=== PATIENT | female | born 1995 | race Caucasian/White ===

== ENCOUNTER → 2019-08-15 09:42 | Outpatient (BNVA) | payer MEDICAID, SELFPAY | PROVIDERS: Family Provider Family Medicine; Visit Provider Nurse Practitioner Psychiatric/Mental Health | DX: F84.0 Autistic disorder (principal); F72 Severe intellectual disabilities | CPT/HCPCS: 99213 ==

== ENCOUNTER 2019-12-02 12:10 | Emergency (ER) | payer MEDICAID, SELFPAY | END 2019-12-02 12:29 | disposition left against medical advice (07) | LOC: ER 02-12 09:40 | PROVIDERS: Emergency Provider Family Medicine; PCP Family Medicine | DX: N30.00 Acute cystitis without hematuria (principal); F84.0 Autistic disorder | CPT/HCPCS: 99281 ==

== ENCOUNTER 2019-12-02 12:30 | Emergency (ER) | payer MEDICAID, SELFPAY ==
[2019-12-02 12:40] VITALS: BP 133/81; PULSE 140; RESP 20; TEMP 36.4; O2SAT 97; BMI 31.5
[2019-12-02 13:17] VITALS: BP 122/73; PULSE 152; RESP 24
--- NOTE | 2019-12-02 13:29 | W.ED.DIZZY ---
HPI - Dizziness General: Chief Complaint: Dizziness Stated Complaint: dizzy, balance off Time Seen by Provider: 12/02/19 13:02 History of Present Illness: HPI Narrative: Patient is a 24-year-old female patient with severe autism and is nonverbal was brought in by her father because he thinks she may be dizzy. For the last 3 days she has refused to walk without holding onto something. Her father denies any fever, and vomiting, or any change in her behaviors. He took her to her primary care provider's office today and they did some blood work and called him with the results to tell him to bring her to the ED. He does not know what the results of the blood work. When I looked at her labs she was leukopenic, severely anemic, with a hemoglobin of 2.9, and thrombocytopenic. Onset (ago): day(s) (3) Timing: gradual onset Review of Systems General: Reports: Other (severe intellectual disability and non verbal) [facility] ED PFSH: Medical History Autism spectrum disorder with accompanying language impairment and intellectual disability, requiring substantial support Severe intellectual disability Social History Smoking and tobacco status: never smoked Female Reproductive History: Date of last menstrual period: 10/02/19 Physical Exam Const: COMMON NORMALS: no acute distress, average body habitus, patient oriented x3, no limitations, healthy appearing, alert and well nourished GENERAL APPEARANCE: anxious HENMT: COMMON NORMALS: normocephalic, atraumatic and moist oral mucous membranes HEAD & SCALP: normocephalic and atraumatic Eye: COMMON NORMALS: Equal, round and reactive pupils present, EOMs intact bilaterally, conjunctivae normal and no scleral icterus CONJUNCTIVA: Yes conjunctivae normal PUPIL: Yes Equal, round and reactive pupils present Neck/C-Spine: COMMON NORMALS: no meningeal signs and no JVD Resp: COMMON NORMALS: normal respiratory effort, No retractions, No use of accessory muscles, clear to auscultation bilaterally and percussion normal AUSCULTATION: clear to auscultation bilaterally PERCUSSION: percussion normal Cardio: COMMON NORMALS: no JVD, regular rhythm, S1 normal heart sound present, S2 normal heart sound present, No gallops present (Cardio), No clicks present (Cardio), No murmurs present (Cardio), No rub (Cardio) and Peripheral pulses 2+ throughout RATE: tachycardic RHYTHM: regular rhythm HEART SOUNDS: S1 normal heart sound present and S2 normal heart sound present PERIPHERAL PULSES: Peripheral pulses 2+ throughout GI: COMMON NORMALS: Normal to inspection, nondistended, normoactive bowel sounds present, Soft to palpation, non-tender, No hepatosplenomegaly present, no masses and no bruits PALPATION: Yes Soft to palpation and Yes No hepatosplenomegaly present : COMMON NORMALS: Yes no CVA tenderness BLADDER/KIDNEY EXAM: Yes no CVA tenderness Back/Pelvis: COMMON NORMALS: no CVA tenderness Extremity: COMMON NORMALS: normal to inspection, full ROM, capillary refill normal, no calf tenderness and no pedal edema Neuro: COMMON NORMALS: patient oriented x3 SENSORIUM/ORIENTATION: Yes alert MENINGEAL SIGNS: Yes no meningeal signs Skin: COMMON NORMALS: no rashes or lesions noted, no wounds, turgor normal, no jaundice, no petechiae and no mottling GENERAL SKIN EXAM: no rashes or lesions noted, turgor normal and pallor Course Reevaluation(s): Reevaluation #1: Discussed her lab findings with her further. Hemoglobin is normal, other hematologic labs unremarkable. UA suggestive of UTI. We will discharge her home on oral antibiotics. She voiced understanding and is in agreement with the plan. Time: 16:11 Vital Signs: Vital signs: Vital Signs Temperature 97.5 F L 12/02/19 12:40 Pulse Rate 152 H 12/02/19 13:17 Respiratory Rate 24 H 12/02/19 13:17 Blood Pressure 122/73 12/02/19 13:17 Pulse Oximetry 97 12/02/19 12:40 MDM - Dizziness MDM Narrative: Medical decision making narrative: 24-year-old autistic female who was brought in by her father with concerns of dizziness. She had been to her primary care provider's office earlier today and on lab testing her hemoglobin was 2.9 white cell count was about 1 and she was also thrombocytopenic. She has been sent here for evaluation. The patient did not clinically look like she was that pale and so repeat testing was done which showed she had normal hemoglobin and white cell counts and hematologic indices. Evaluation was only positive for urinary tract infection. She was discharged home on oral antibiotics. Medical Records: Attestation: I reviewed the patient's medical records. Lab Data: Attestation: I reviewed the patient's lab results. Labs: Lab Results 12/02/19 12/02/19 12/02/19 Range/Units 13:33 13:33 14:02 WBC 7.8 (4.0-10.0) 10^3/ uL RBC 3.31 L (4.1-5.3) 10^6/u L Hgb 13.6 (11.5-15.3) g/dL Hct 40.4 (37.0-47.0) % MCV 122.1 H (81-99) fL MCH 41.1 H (28.0-34.0) pg MCHC 33.7 (30.0-36.0) g/dL RDW 13.9 (12.1-15.1) % Plt Count 301 (130-400) 10^3/c mm MPV 10.5 H (7.4-10.4) fL Neut % (Auto) 72.9 % Lymph % (Auto) 21.3 % [place] % (Auto) 4.2 % Eos % (Auto) 1.1 % Baso % (Auto) 0.1 % Neut # (Auto) 5.7 (1.8-7.7) 10^3/u L Lymph # (Auto) 1.7 (0.8-4.8) 10^3/u L [place] # (Auto) 0.3 (0.2-0.9) 10^3/u L Eos # (Auto) 0.1 (0.0-0.8) 10^3/u L Baso # (Auto) 0.0 (0.0-0.1) 10^3/u L Nucleated RBC % (a uto) 0 % Nucleated RBCs # 0.0 /100WBC PT (10.5-13.3) SECO NDS INR (0.8-1.2) Sodium (136-145) mmol/L Potassium (3.5-5.1) mmol/L Chloride (98-107) mmol/L Carbon Dioxide (22-29) mmol/L Anion Gap (5-19) BUN (6-20) mg/dL Creatinine (0.5-0.9) mg/dL GFR Calculation (90-130) mL/min Glucose (65-115) mg/dL Calculated Osmolal ity (285-295) mOsm/k g Calcium (8.5-10.5) mg/dL Total Bilirubin (0.15-1.2) mg/dL AST (0-32) U/L ALT (0-33) U/L Alkaline Phosphata se (35-105) IU/L C-Reactive Protein (0.0-4.9) mg/L Total Protein (6.6-8.7) g/dL Albumin (3.5-5.2) g/dL Globulin (1.3-4.6) g/dL Procalcitonin (0-0.5) ng/mL HCG, Qual Negative (Negative) Urine Color Yellow (Yellow) Urine Appearance Hazy A (CLEAR) Urine pH 5 (5-7) Ur Specific Gravit y 1.020 (1.005-1.030) Urine Protein Trace (Negative) Urine Glucose (UA) Norm (Normal) Urine Ketones 1+ H (Negative) Urine Blood Neg (Negative) Urine Nitrate Negative (Negative) Urine Bilirubin 1+ H (NEGATIVE) Urine Urobilinogen 1 H (Negative) mg/dL Ur Leukocyte Soha ase 2+ H (Negative) Urine RBC None (0-2) /hpf Urine WBC 25-40 H (0-5) /hpf Ur Squamous Epith Cells 5-10 H (0-5) Urine Bacteria 2+ H (NONE) Blood Type Rho(D) Type Antibody Screen 12/02/19 12/02/19 12/02/19 Range/Units 14:02 14:02 14:02 WBC (4.0-10.0) 10^3/ uL RBC (4.1-5.3) 10^6/u L Hgb (11.5-15.3) g/dL Hct (37.0-47.0) % MCV (81-99) fL MCH (28.0-34.0) pg MCHC (30.0-36.0) g/dL RDW (12.1-15.1) % Plt Count (130-400) 10^3/c mm MPV (7.4-10.4) fL Neut % (Auto) % Lymph % (Auto) % [place] % (Auto) % Eos % (Auto) % Baso % (Auto) % Neut # (Auto) (1.8-7.7) 10^3/u L Lymph # (Auto) (0.8-4.8) 10^3/u L [place] # (Auto) (0.2-0.9) 10^3/u L Eos # (Auto) (0.0-0.8) 10^3/u L Baso # (Auto) (0.0-0.1) 10^3/u L Nucleated RBC % (a uto) % Nucleated RBCs # /100WBC PT 11.80 (10.5-13.3) SECO NDS INR 0.85 (0.8-1.2) Sodium 142 (136-145) mmol/L Potassium 3.5 (3.5-5.1) mmol/L Chloride 103 (98-107) mmol/L Carbon Dioxide 22 (22-29) mmol/L Anion Gap 20.5 H (5-19) BUN 10 (6-20) mg/dL Creatinine 0.6 (0.5-0.9) mg/dL GFR Calculation 120.8 (90-130) mL/min Glucose 103 (65-115) mg/dL Calculated Osmolal ity 290 (285-295) mOsm/k g Calcium 9.7 (8.5-10.5) mg/dL Total Bilirubin 0.7 (0.15-1.2) mg/dL AST 37 H (0-32) U/L ALT 39 H (0-33) U/L Alkaline Phosphata se 63 (35-105) IU/L C-Reactive Protein 15.3 H (0.0-4.9) mg/L Total Protein 7.7 (6.6-8.7) g/dL Albumin 4.3 (3.5-5.2) g/dL Globulin 3.4 (1.3-4.6) g/dL Procalcitonin 0.04 (0-0.5) ng/mL HCG, Qual (Negative) Urine Color (Yellow) Urine Appearance (CLEAR) Urine pH (5-7) Ur Specific Gravit y (1.005-1.030) Urine Protein (Negative) Urine Glucose (UA) (Normal) Urine Ketones (Negative) Urine Blood (Negative) Urine Nitrate (Negative) Urine Bilirubin (NEGATIVE) Urine Urobilinogen (Negative) mg/dL Ur Leukocyte Soha ase (Negative) Urine RBC (0-2) /hpf Urine WBC (0-5) /hpf Ur Squamous Epith Cells (0-5) Urine Bacteria (NONE) Blood Type O Positive Rho(D) Type Positive Antibody Screen Negative Discharge Plan Discharge Patient Disposition: Home, Self-Care Clinical Impression: UTI (urinary tract infection) Qualifiers: Urinary tract infection type: acute cystitis Hematuria presence: without hematuria Qualified Code(s): N30.00 - Acute cystitis without hematuria Condition: Stable Prescriptions: New Macrobid 100 mg capsule 100 mg PO BID 7 Days Qty: 14 RF: 0 Continued cefuroxime axetil 250 mg tablet 250 mg PO BID RF: 0 levothyroxine 112 mcg capsule 112 mcg PO DAILY RF: 0 ziprasidone HCl [Geodon] 20 mg capsule 20 mg PO BID Qty: 60 RF: 4 lorazepam [Ativan] 0.5 mg tablet 0.5 mg PO DAILY PRN (Reason: agitation) Qty: 30 RF: 3 Discharge Orders: Discharge Order (Routine); Ordered 12/02/19 Ordered By: Nicolás Del Rio Referrals: Norm Fuchs MD [Primary Care Provider] - 1-3 days Patient Instructions: Urinary Tract Infection in Women (ED) Activity Restrictions/Additional Instructions: Return for any new or worsening symptoms. Follow up with her primary care provider within 5 days. Give her plenty of fluids to drink to keep well hydrated. Discharge Date/Time: 12/02/19 16:31 Coding Level of Care Code ED Advertising Vice President for [employer] Exam Comprehensive
[2019-12-02] MEDS: LORazepam 2 mg/mL INJ 1 mL 1 MG IM (13:32)
[2019-12-02 13:43] LABS: HCG Qualitative Urine. Negative (Negative)
[2019-12-02 14:10] LABS: Basophils % 0.1 %; Eosinophils # 0.1 10^3/uL (0.0-0.8); Eosinophils % 1.1 %; Hematocrit 40.4 % (37.0-47.0); Hemoglobin 13.6 g/dL (11.5-15.3); Lymphocytes # 1.7 10^3/uL (0.8-4.8); Lymphocytes % 21.3 %; Mean Corpuscular HGB Conc 33.7 g/dL (30.0-36.0); Mean Corpuscular Hemoglobin 41.1 pg (28.0-34.0); Mean Corpuscular Volume 122.1 fL (81-99); Mean Platelet Volume 10.5 fL (7.4-10.4); Monocytes # 0.3 10^3/uL (0.2-0.9); Monocytes % 4.2 %; Neutrophils # 5.7 10^3/uL (1.8-7.7); Neutrophils % 72.9 %; Nucleated Red Blood Cells % 0 %; Platelet Count 301 10^3/cmm (130-400); Red Blood Count 3.31 10^6/uL (4.1-5.3); Red Cell Distribution Width 13.9 % (12.1-15.1); White Blood Count 7.8 10^3/uL (4.0-10.0)
[2019-12-02 14:28] LABS: INR 0.85 (0.8-1.2)
[2019-12-02 14:42] LABS: Procalcitonin 0.04 ng/mL (0-0.5)
[2019-12-02 14:53] LABS: Alanine Aminotransferase 39 U/L (0-33); Albumin Level 4.3 g/dL (3.5-5.2); Alkaline Phosphatase 63 IU/L (35-105); Anion Gap 20.5 (5-19); Aspartate Amino Transferase 37 U/L (0-32); Blood Urea Nitrogen 10 mg/dL (6-20); C Reactive Protein 15.3 mg/L (0.0-4.9); Calcium 9.7 mg/dL (8.5-10.5); Carbon Dioxide 22 mmol/L (22-29); Chloride 103 mmol/L (98-107); Creatinine Clr Calc Pharmacy 113.9517; Globulin 3.4 g/dL (1.3-4.6); Glomerular Filtration Rate 120.8 mL/min (90-130); Glucose 103 mg/dL (65-115); Osmolality Calculated 290 mOsm/kg (285-295); Potassium 3.5 mmol/L (3.5-5.1); Sodium 142 mmol/L (136-145); Total Bilirubin 0.7 mg/dL (0.15-1.2); Total Protein 7.7 g/dL (6.6-8.7)
[2019-12-02 15:50] LABS: Add Urine Microscopic? YES; Bilirubin Urine 1+ (NEGATIVE); Blood Urine Neg (Negative); Glucose Urine UA Norm (Normal); Ketones Urine 1+ (Negative); Leukocyte Esterase Urine 2+ (Negative); Nitrate Urine Negative (Negative); Protein Urine Trace (Negative); Urine Appearance Hazy (CLEAR); Urine Color Yellow (Yellow); Urobilinogen Urine 1 mg/dL (Negative); pH Urine 5 (5-7)
[2019-12-02 15:56] LABS: Bacteria Urine 2+; WBC Urine 25-40 /hpf (0-5)
[2019-12-02 15:57] LABS: Add Urine Culture? Yes
== END 2019-12-02 16:31 | disposition home or self-care (01) ==
PROVIDERS: Emergency Provider Family Medicine; PCP Family Medicine
DX: N30.00 Acute cystitis without hematuria (principal); F84.0 Autistic disorder
CPT/HCPCS: 12345; 36415; 80053; 81001; 81025; 84145; 85025; 85610; 86140; 86850; 86900; 87040; 87077; 87086; 87186; 96372; 99282; 99283; J2060

== ENCOUNTER → 2020-04-23 08:28 | Outpatient (BNVA) | payer MEDICAID, SELFPAY | PROVIDERS: PCP Family Medicine; Visit Provider Nurse Practitioner Psychiatric/Mental Health | DX: F84.0 Autistic disorder (principal); F72 Severe intellectual disabilities | CPT/HCPCS: 99213 ==

== ENCOUNTER 2020-11-04 09:38 | Outpatient (CLI) | payer MEDICAID, SELFPAY ==
--- NOTE | 2020-11-04 09:52 | FL_ITS ---
WS: [id number] MODIFIED BARIUM SWALLOW HISTORY: Other dysphagia FLUOROSCOPY TIME: 1.9 minutes. Modified barium swallow was performed by the speech pathologist. Fluoroscopy was provided with the pa tient in a lateral projection. Multiple food consistencies were provided. Limited evaluation of swallowing mechanism due to patient's inability to cooperate completely. Patien t did swallow all food consistencies without too much difficulty. After swallowing the liquids there is mild to moderate pharyngeal coating. No aspiration or laryngeal penetration. Patient was able to f orm a food bolus without difficulty. Barium tablet was swallowed without difficulty. FL/FL barium swallow modifd [id number] IMPRESSION: 1. Mild to moderate pharyngeal coating with barium after swallowing the liquid s. No aspiration or penetration was noted on this examination. 2. Patient swallowed the barium tablet without difficulty. Please see speech therapist report also for recommendations.
== END 2020-11-04 09:39 | disposition home or self-care (01) ==
LOC: RAD 09:41
PROVIDERS: PCP Family Medicine; Visit Provider Specialist
DX: R13.10 Dysphagia, unspecified (principal)
CPT/HCPCS: 74230; 92611

== ENCOUNTER 2020-11-05 10:31 | Outpatient (CLI) | payer MEDICAID, SELFPAY ==
--- NOTE | 2020-11-05 10:40 | FL_ITS ---
WS: [id number] Exam: FL barium swallow [id number] Date/Time of Exam: 11/05/2020 10:46 AM Reason For Exam: DYSPHAGIA Fluoroscopy time: .5 minutes The exam is limited due to the patient's autism and inability to fully cooperate for the study. Swallowing function at the level of the oropharynx was normal. No aspiration was seen. The visualized esophagus is smooth in contour. No hiatal hernia noted. Barium spills freely into the stomach. No es ophageal stricture or mass was noted. Motility was normal. FL/FL barium swallow [id number] IMPRESSION: 1. Limited exam due to the patient's inability to fully cooperate however there was no sign of esophageal stricture, mass or obstruction. Motility was normal. No aspiration.
== END 2020-11-05 10:32 | disposition home or self-care (01) ==
LOC: RAD 10:36
PROVIDERS: PCP Family Medicine; Visit Provider Specialist
DX: R13.10 Dysphagia, unspecified (principal)
CPT/HCPCS: 74220

== ENCOUNTER → 2020-12-20 09:20 | Outpatient (BNVA) | payer MEDICAID, SELFPAY | PROVIDERS: PCP Family Medicine; Visit Provider Nurse Practitioner Psychiatric/Mental Health | DX: F84.0 Autistic disorder (principal); F72 Severe intellectual disabilities | CPT/HCPCS: 99214 ==

== ENCOUNTER → 2021-04-11 08:46 | Outpatient (BNVA) | payer MEDICAID, SELFPAY | PROVIDERS: PCP Family Medicine; Visit Provider Nurse Practitioner Psychiatric/Mental Health | DX: F84.0 Autistic disorder (principal); F72 Severe intellectual disabilities; Z79.899 Other long term (current) drug therapy | CPT/HCPCS: 99214 ==

== ENCOUNTER → 2021-08-15 14:12 | Outpatient (BNVA) | payer MEDICAID, SELFPAY | PROVIDERS: PCP Family Medicine; Visit Provider Nurse Practitioner Psychiatric/Mental Health | DX: G24.01 Drug induced subacute dyskinesia (principal); R25.8 Other abnormal involuntary movements; F84.0 Autistic disorder; F72 Severe intellectual disabilities; Z79.899 Other long term (current) drug therapy | CPT/HCPCS: 99214 ==

== ENCOUNTER → 2021-09-12 09:52 | Outpatient (BNVA) | payer MEDICAID, SELFPAY | PROVIDERS: PCP Family Medicine; Visit Provider Nurse Practitioner Psychiatric/Mental Health | DX: G24.01 Drug induced subacute dyskinesia (principal); R25.8 Other abnormal involuntary movements; F84.0 Autistic disorder; F72 Severe intellectual disabilities; Z79.899 Other long term (current) drug therapy | CPT/HCPCS: 99214 ==

== ENCOUNTER → 2021-10-29 09:15 | Outpatient (BNVA) | payer MEDICAID, SELFPAY | PROVIDERS: PCP Family Medicine; Visit Provider Nurse Practitioner Psychiatric/Mental Health | DX: G24.01 Drug induced subacute dyskinesia (principal); R25.8 Other abnormal involuntary movements; F84.0 Autistic disorder; F72 Severe intellectual disabilities; Z79.899 Other long term (current) drug therapy | CPT/HCPCS: 99214 ==

== ENCOUNTER → 2021-11-13 12:38 | Outpatient (BNVA) | payer MEDICAID, SELFPAY | PROVIDERS: PCP Family Medicine; Referring Provider Family Medicine; Visit Provider Specialist | DX: G80.1 Spastic diplegic cerebral palsy (principal); F84.0 Autistic disorder | CPT/HCPCS: 99204; 99205 ==

== ENCOUNTER → 2021-11-27 09:10 | Outpatient (BNVA) | payer MEDICAID, SELFPAY | PROVIDERS: PCP Family Medicine; Visit Provider Specialist | DX: G80.1 Spastic diplegic cerebral palsy (principal); F72 Severe intellectual disabilities; F84.0 Autistic disorder | CPT/HCPCS: 64642; 64644; J0585 ==

== ENCOUNTER 2021-12-07 18:54 | Emergency (ER) | payer MEDICAID, SELFPAY ==
[2021-12-07 20:29] VITALS: BP 126/83; PULSE 148; RESP 18; TEMP 37.1; O2SAT 97; BMI 22.6
--- NOTE | 2021-12-07 20:42 | XRR_ITS ---
PROCEDURE INFORMATION: Exam: XR Chest Exam date and time: 12/07/2021 8:48 PM Age: 26 years old Clinical indication: Cough; Additional info: Possible aspiration of food, cough TECHNIQUE: Imaging protocol: Radiologic exam of the chest. Views: 2 views. COMPARISON: XA FL barium swallow [id number] 11/05/2020 10:48 AM FINDINGS: Tubes, catheters and devices: A right subclavian catheter ends near the subclavian-brachiocephalic junction. Lungs: The lungs are clear. Pleural spaces: No pneumothorax. Heart/Mediastinum: Unremarkable. No cardiomegaly. Bones/joints: Unremarkable. XR/XR chest 2V* [id number] IMPRESSION: No acute findings
--- NOTE | 2021-12-07 21:30 | W.ED.GENADLT ---
HPI - General Adult General: Chief complaint: General Medical Stated complaint: possible aspiration/coughing/wheezing/fever Time Seen by Provider: 12/07/21 20:50 History of Present Illness: Patient is a 26-year-old female comes to the ED with coughing. Patient has a history of cerebral palsy and severe intellectual disability and is nonverbal. Patient's caregiver is present in the ED and providing history. For the past 3 days patient has been having nasal congestion drainage and a cough. Tonight patient was eating some food and then possibly aspirated some food and was choking started coughing. Since episode of possibly aspirating some food she has been coughing a little more tonight. Denies any fevers or vomiting. Associated symptoms: Deny chest pain, dyspnea, headache(s), nausea, rash, palpitations or vomiting Review of Systems Const: Denies: fever(s), chills or fatigue Eyes: Denies: change in vision or eye discomfort ENMT: Reports: nasal discharge and nasal congestion; Denies: throat pain or odynophagia Card: Denies: chest pain, palpitations, edema, swelling of feet/ankles, dyspnea on exertion or orthopnea Resp: Reports: non-productive cough; Denies: dyspnea or productive cough GI: Denies: abdominal pain, nausea, vomiting, diarrhea, constipation or hematochezia : Denies: flank pain, dysuria or hematuria Musc: Denies: neck pain, back pain or extremity swelling Skin/Breast: Denies: rash or new lesions Neuro: Denies: headache(s), numbness in extremities or weakness in extremities PFS ED PFSH: Medical History Autism spectrum disorder with accompanying language impairment and intellectual disability, requiring substantial support Choreiform movement Psychiatric care Severe intellectual disability Tardive dyskinesia oral Surgical History No pertinent past surgical history Social History Smoking and tobacco status: never smoked Female Reproductive History: Date of last menstrual period: 10/02/19 Physical Exam Const: COMMON NORMALS: alert EXAM LIMITATIONS: other limitations (Patient has CP and is nonverbal.) HENMT: COMMON NORMALS: normocephalic HEAD & SCALP: normocephalic MOUTH: Normal oral and palatal mucosa present THROAT: posterior oropharynx normal and uvula midline Neck/C-Spine: COMMON NORMALS: supple GENERAL: Yes normal visual inspection Resp: COMMON NORMALS: normal respiratory effort, No retractions, No use of accessory muscles and clear to auscultation bilaterally AUSCULTATION: clear to auscultation bilaterally Cardio: COMMON NORMALS: regular rate, regular rhythm, S1 normal heart sound present, S2 normal heart sound present, No gallops present (Cardio), No clicks present (Cardio), No murmurs present (Cardio) and Peripheral pulses 2+ throughout RATE: regular rate RHYTHM: regular rhythm HEART SOUNDS: S1 normal heart sound present and S2 normal heart sound present PERIPHERAL PULSES: Peripheral pulses 2+ throughout GI: COMMON NORMALS: Normal to inspection, nondistended, normoactive bowel sounds present, Soft to palpation, non-tender and no masses PALPATION: Yes Soft to palpation : COMMON NORMALS: Yes no CVA tenderness BLADDER/KIDNEY EXAM: Yes no CVA tenderness Back/Pelvis: COMMON NORMALS: no CVA tenderness Neuro: COMMON NORMALS: moves all extremities SENSORIUM/ORIENTATION: Yes alert Skin: GENERAL SKIN EXAM: dry skin Course Vital Signs: Vital signs: Vital Signs Temperature 99.9 F H 12/07/21 22:43 Pulse Rate 127 H 12/07/21 22:43 Respiratory Rate 18 12/07/21 21:44 Blood Pressure 128/109 12/07/21 22:43 Pulse Oximetry 94 12/07/21 22:43 [facility] - General Adult Medical Decision Making Patient is a 26-year-old female comes to the ED with coughing. Patient has a history of cerebral palsy and severe intellectual disability and is nonverbal. Patient's caregiver is present in the ED and providing history. For the past 3 days patient has been having nasal congestion drainage and a cough. Tonight she had an episode of a coughing fit while eating and they were concerned the patient could have aspirated food. Vitals are stable. Lungs are clear to auscultation bilaterally and the rest of exam is benign. Chest x-ray showed no acute findings. CBC and CMP were unremarkable. Patient was diagnosed with upper respiratory viral infection with a cough and discharged home. Patient's operator was told to have patient follow-up with PCP within the next week for reevaluation. Return to ED precautions given. Patient's caregiver understood and agreed with plan. Lab Data I reviewed the patient's lab results. : 12/07/21 21:43 12/07/21 21:43 Radiology Impressions Chest X-Ray 12/07/21 20:42 IMPRESSION: No acute findings Laboratory Results WBC 9.1 10^3/uL (4.0-10.0) 12/07/21 21:43 RBC 4.17 10^6/uL (4.1-5.3) 12/07/21 21:43 Hgb 12.9 g/dL (11.5-15.3) 12/07/21 21:43 Hct 37.8 % (37.0-47.0) 12/07/21 21:43 MCV 90.6 fl (81-99) 12/07/21 21:43 MCH 30.9 pg (28.0-34.0) 12/07/21 21:43 MCHC 34.1 g/dL (30.0-36.0) 12/07/21 21:43 RDW 11.9 % (12.1-15.1) L 12/07/21 21:43 Plt Count 308 10^3/cmm (130-400) 12/07/21 21:43 MPV 9.7 fL (7.4-10.4) 12/07/21 21:43 Neut % (Auto) 79.7 % 12/07/21 21:43 Lymph % (Auto) 14.3 % 12/07/21 21:43 [place] % (Auto) 5.1 % 12/07/21 21:43 Eos % (Auto) 0.0 % 12/07/21 21:43 Baso % (Auto) 0.3 % 12/07/21 21:43 Neut # (Auto) 7.25 10^3/uL (1.8-7.7) 12/07/21 21:43 Lymph # (Auto) 1.3 10^3/uL (0.8-4.8) 12/07/21 21:43 [place] # (Auto) 0.5 10^3/uL (0.2-0.9) 12/07/21 21:43 Eos # (Auto) 0.0 10^3/uL (0.0-0.8) 12/07/21 21:43 Baso # (Auto) 0.0 10^3/uL (0.0-0.1) 12/07/21 21:43 Nucleated RBC % (auto) 0 % 12/07/21 21:43 Nucleated RBCs # 0.0 /100WBC 12/07/21 21:43 Sodium 137 mmol/L (136-145) 12/07/21 21:43 Potassium 3.4 mmol/L (3.5-5.1) L 12/07/21 21:43 Chloride 106 mmol/L (98-107) 12/07/21 21:43 Carbon Dioxide 19 mmol/L (22-29) L 12/07/21 21:43 Anion Gap 15.4 (5-19) 12/07/21 21:43 BUN 10 mg/dL (6-20) 12/07/21 21:43 Creatinine 0.5 mg/dL (0.5-0.9) 12/07/21 21:43 GFR Calculation 146.9 mL/min (90-130) H 12/07/21 21:43 Glucose 111 mg/dL (65-115) 12/07/21 21:43 Calculated Osmolality 284 mOsm/kg (285-295) L 12/07/21 21:43 Calcium 8.4 mg/dL (8.5-10.5) L 12/07/21 21:43 Total Bilirubin 0.2 mg/dL (0.15-1.2) 12/07/21 21:43 AST 23 U/L (0-32) 12/07/21 21:43 ALT 22 U/L (0-33) 12/07/21 21:43 Alkaline Phosphatase 66 IU/L (35-105) 12/07/21 21:43 Total Protein 6.5 g/dL (6.6-8.7) L 12/07/21 21:43 Albumin 3.3 g/dL (3.5-5.2) L 12/07/21 21:43 Globulin 3.2 g/dL (1.3-4.6) 12/07/21 21:43 Coronavirus 229E (PCR) Not detected (NOT DETECT) 12/07/21 21:43 Human Metapneumovir PCR Not detected (NOT DETECT) 12/08/21 00:14 Entero/Rhino (PCR) Detected (NOT DETECT) A 12/08/21 00:14 SARS-CoV-2 (PCR) Not detected (NOT DETECT) 12/07/21 21:43 Discharge Plan Discharge Patient Disposition: Home Clinical Impression: Viral URI with cough Condition: Stable Prescriptions: No Action cefuroxime axetil 250 mg tablet 250 mg PO BID 0RF Rx Instructions: pt father states pt takes some type of control, but he doesn't know the name or dosage of it. levothyroxine 112 mcg capsule 112 mcg PO DAILY 0RF Rx Instructions: 1 tab PO 5x/week Mon-Fri levothyroxine 100 mcg capsule 100 mcg PO DAILY 0RF Rx Instructions: 1 tab PO 2x/week Sat & Sun cyanocobalamin (vitamin B-12) 1,000 mcg/mL solution 1,000 mcg IM .monthly 0RF acetaminophen [Tylenol] 325 mg capsule 650 mg PO Q6H PRN0RF [place] 6 mg tablet 6 mg PO BID Qty: 60 3RF Rx Instructions: Take one tablet twice per day olanzapine [Zyprexa Zydis] 5 mg tablet,disintegrating 2.5 mg PO BID Qty: 30 3RF Rx Instructions: Take half tablet twice per day trazodone 50 mg tablet 50 mg PO BEDTIME Qty: 30 3RF Rx Instructions: Take one tablet at bedtime diazepam [Valium] 2 mg tablet 2 mg PO TID Qty: 90 1RF Rx Instructions: Take one tablet three times per day diazepam [Valium] 5 mg tablet 5 mg PO BID PRN (Reason: severe acute agitation/anxiety) Qty: 60 1RF Rx Instructions: May take one tablet twice per day as needed for severe acute agitation/anxiety Discharge Orders: Discharge ED (Routine); Ordered 12/07/21 Ordered By: Rashaun Simeon Referrals: Norm Fuchs MD [Primary Care Provider] - Discharge Diet: Regular Discharge Activity: Increase activity as tolerated Patient Instructions: Upper Respiratory Infection (DC) Activity Restrictions/Additional Instructions: Follow-up with medical provider as directed in the next 5 to 7 days reevaluation. Your COVID and influenza tests are pending. Results should be back within the next couple hours so you can call [facility] in the morning to find out lab results. Continue taking all home medications as previously prescribed. Give [id number] Tylenol or Motrin for any fevers. Return to the ER or your medical provider if condition worsens. Please read and understand discharge instructions. Thank you for choosing [facility] for your healthcare needs today. Please realize this is an emergency room and that we are providing you with a medical screening exam and this may not be complete and all inclusive of all the testing and or work up that you may need to determine your ailment or severity of your illness. It is very important that you follow up as instructed or that you return to the Emergency Department should you have concerns or if your condition changes or worsens in any way. Coding Level of Care Code ED Wire Coiler Machine Operator for Cheikh Fwnupur Exam Comprehensive
[2021-12-07 21:44] VITALS: BP 145/110; PULSE 132; RESP 18; O2SAT 96
[2021-12-07 21:46] LABS: Basophils % 0.3 %; Hematocrit 37.8 % (37.0-47.0); Hemoglobin 12.9 g/dL (11.5-15.3); Lymphocytes # 1.3 10^3/uL (0.8-4.8); Lymphocytes % 14.3 %; Mean Corpuscular HGB Conc 34.1 g/dL (30.0-36.0); Mean Corpuscular Hemoglobin 30.9 pg (28.0-34.0); Mean Corpuscular Volume 90.6 fl (81-99); Mean Platelet Volume 9.7 fL (7.4-10.4); Monocytes # 0.5 10^3/uL (0.2-0.9); Monocytes % 5.1 %; Neutrophils # 7.25 10^3/uL (1.8-7.7); Neutrophils % 79.7 %; Nucleated Red Blood Cells % 0 %; Platelet Count 308 10^3/cmm (130-400); Red Blood Count 4.17 10^6/uL (4.1-5.3); Red Cell Distribution Width 11.9 % (12.1-15.1); White Blood Count 9.1 10^3/uL (4.0-10.0)
[2021-12-07 22:17] LABS: Alanine Aminotransferase 22 U/L (0-33); Albumin Level 3.3 g/dL (3.5-5.2); Alkaline Phosphatase 66 IU/L (35-105); Anion Gap 15.4 (5-19); Aspartate Amino Transferase 23 U/L (0-32); Blood Urea Nitrogen 10 mg/dL (6-20); Calcium 8.4 mg/dL (8.5-10.5); Carbon Dioxide 19 mmol/L (22-29); Chloride 106 mmol/L (98-107); Globulin 3.2 g/dL (1.3-4.6); Glomerular Filtration Rate 146.9 mL/min (90-130); Glucose 111 mg/dL (65-115); Osmolality Calculated 284 mOsm/kg (285-295); Potassium 3.4 mmol/L (3.5-5.1); Sodium 137 mmol/L (136-145); Total Bilirubin 0.2 mg/dL (0.15-1.2); Total Protein 6.5 g/dL (6.6-8.7)
[2021-12-07 22:43] VITALS: BP 128/109; PULSE 127; TEMP 37.7; O2SAT 94
[2021-12-08 00:04] LABS: Adenovirus Not Detected (NOT DETECT); Chlamydia Pneumoniae Not Detected (NOT DETECT); Coronavirus 229E,HKU1,NL63,OC4 Not Detected (NOT DETECT); Human Metapneumovirus Not Detected (NOT DETECT); Human Rhinovirus/Enterovirus Detected (NOT DETECT); Influenza A Not Detected (NOT DETECT); Influenza A H1 Not Detected (NOT DETECT); Influenza A H1-2009 Not Detected (NOT DETECT); Influenza A H3 Not Detected (NOT DETECT); Influenza B Not Detected (NOT DETECT); Mycoplasma Pneumoniae Not Detected (NOT DETECT); Parainfluenza Virus Type 1 Not Detected (NOT DETECT); Parainfluenza Virus Type 2 Not Detected (NOT DETECT); Parainfluenza Virus Type 3 Not Detected (NOT DETECT); Parainfluenza Virus Type 4 Not Detected (NOT DETECT); Respiratory Syncytial Virus A Not Detected (NOT DETECT); Respiratory Syncytial Virus B Not Detected (NOT DETECT); SARS-COV-2 Not Detected (NOT DETECT)
[2021-12-08 00:14] LABS: Human Metapneumovirus Not Detected (NOT DETECT); Human Rhinovirus/Enterovirus Detected (NOT DETECT); Results from Genmark
== END 2021-12-07 22:51 | disposition home or self-care (01) ==
PROVIDERS: Emergency Medicine; Emergency Provider Physician Assistant; PCP Family Medicine
DX: J06.9 Acute upper respiratory infection, unspecified (principal); F84.0 Autistic disorder; Z20.822 Contact with and (suspected) exposure to COVID-19
CPT/HCPCS: 36415; 71046; 80053; 85025; 87635; 87801; 99283

== ENCOUNTER → 2022-02-19 09:47 | Outpatient (BNVA) | payer MEDICAID, SELFPAY | PROVIDERS: PCP Family Medicine; Visit Provider Specialist | DX: G80.1 Spastic diplegic cerebral palsy (principal); F72 Severe intellectual disabilities; F84.0 Autistic disorder | CPT/HCPCS: 64642; 64644; J0585 ==

== ENCOUNTER → 2022-05-14 14:44 | Outpatient (BNVA) | payer MEDICAID, SELFPAY | PROVIDERS: PCP Family Medicine; Visit Provider Specialist | DX: G80.1 Spastic diplegic cerebral palsy (principal); F84.0 Autistic disorder; F79 Unspecified intellectual disabilities; F80.9 Developmental disorder of speech and language, unspecified | CPT/HCPCS: 64642; 64644; J0585 ==

== ENCOUNTER → 2022-08-06 14:53 | Outpatient (BNVA) | payer MEDICAID, SELFPAY | PROVIDERS: PCP Family Medicine; Visit Provider Specialist | DX: G80.1 Spastic diplegic cerebral palsy (principal); F84.0 Autistic disorder | CPT/HCPCS: 64642; J0585 ==

== ENCOUNTER → 2022-10-29 15:05 | Outpatient (BNVA) | payer MEDICAID, SELFPAY | PROVIDERS: PCP Family Medicine; Referring Provider Specialist; Visit Provider Specialist | DX: G80.1 Spastic diplegic cerebral palsy (principal) | CPT/HCPCS: 64642; 64643; 95911; J0585 ==

== ENCOUNTER → 2023-01-28 14:22 | Outpatient (BNVA) | payer MEDICAID, SELFPAY | PROVIDERS: PCP Family Medicine; Visit Provider Specialist | DX: G80.1 Spastic diplegic cerebral palsy (principal) | CPT/HCPCS: 64642; J0585 ==

== ENCOUNTER → 2023-04-29 14:20 | Outpatient (BNVA) | payer MEDICAID, SELFPAY | PROVIDERS: PCP Family Medicine; Visit Provider Specialist | DX: G80.1 Spastic diplegic cerebral palsy (principal); F72 Severe intellectual disabilities; F84.0 Autistic disorder | CPT/HCPCS: 64642; 95911; J0585 ==

== ENCOUNTER → 2023-08-05 13:38 | Outpatient (BNVA) | payer MEDICAID, SELFPAY | PROVIDERS: PCP Family Medicine; Visit Provider Specialist | DX: G80.1 Spastic diplegic cerebral palsy (principal) | CPT/HCPCS: 64642; J0585 ==

== ENCOUNTER → 2023-11-04 13:24 | Outpatient (BNVA) | payer MEDICAID, SELFPAY | PROVIDERS: PCP Family Medicine; Visit Provider Specialist | DX: G80.1 Spastic diplegic cerebral palsy (principal); F84.0 Autistic disorder | CPT/HCPCS: 64642; J0585 ==

== ENCOUNTER → 2024-02-17 12:00 | Outpatient (BNVA) | payer MEDICAID, SELFPAY | PROVIDERS: PCP Family Medicine; Visit Provider Specialist | DX: F84.0 Autistic disorder (principal); G80.1 Spastic diplegic cerebral palsy | CPT/HCPCS: 64642; J0585 ==

== ENCOUNTER → 2024-07-07 12:45 | Outpatient (BNVA) | payer MEDICAID, SELFPAY | PROVIDERS: PCP Family Medicine; Visit Provider Specialist | DX: F84.0 Autistic disorder (principal); G80.1 Spastic diplegic cerebral palsy | CPT/HCPCS: 64644; J0585 ==

== ENCOUNTER → 2024-11-09 09:18 | Outpatient (BNVA) | payer MEDICAID, SELFPAY | PROVIDERS: PCP Family Medicine; Visit Provider Specialist | DX: F84.0 Autistic disorder (principal); G80.1 Spastic diplegic cerebral palsy | CPT/HCPCS: 99213 ==

== ENCOUNTER → 2024-12-08 12:52 | Outpatient (BNVA) | payer MEDICAID, SELFPAY | PROVIDERS: PCP Family Medicine; Visit Provider Specialist | DX: G80.1 Spastic diplegic cerebral palsy (principal); F84.0 Autistic disorder | CPT/HCPCS: 64642; J0585; J9999 ==

== ENCOUNTER → 2025-02-05 11:15 | Outpatient (BNVA) | payer MEDICAID, SELFPAY | PROVIDERS: PCP Family Medicine; Visit Provider Specialist | DX: G80.1 Spastic diplegic cerebral palsy (principal); R26.9 Unspecified abnormalities of gait and mobility | CPT/HCPCS: 99213 ==

== ENCOUNTER → 2025-04-19 09:55 | Outpatient (BNVA) | payer MEDICARE, MEDICAID, SELFPAY | PROVIDERS: PCP Family Medicine; Visit Provider Specialist | DX: G80.1 Spastic diplegic cerebral palsy (principal); F84.0 Autistic disorder; R03.0 Elevated blood-pressure reading, without diagnosis of hypertension | CPT/HCPCS: 64642; J0585; J9999 ==